=== PATIENT | female | born 1970 | race African-American/Black ===

== ENCOUNTER 2025-02-25 17:35 | Emergency (ER) | payer BC ==
[~2025-02-25] VITALS: Ht 165.1 cm; Wt 68.0 kg
[2025-02-25] MEDS ORDERED: IOHEXOL 350 100 ML INFUS..BTL ONE (18:24)
[2025-02-25] MEDS ORDERED: SWABABLE VALVE TRANSFER SET EA MC ONE (18:24)
[2025-02-25] MEDS ORDERED: IV NORMAL SALINE 250 ML IV ONE (18:24)
[2025-02-25 18:25] LABS: BASOPHILS % (AUTO) 0.4 % (0.0-2.0); EOSINOPHILS % (AUTO) 0.6 % (0.0-7.0); HEMOGLOBIN 13.2 g/dL (10.9-14.3); LYMPHOCYTES # (AUTO) 1.6 K/uL (0.8-4.8); LYMPHOCYTES % (AUTO) 21.2 % (20.5-51.5); MEAN CORPUSCULAR HEMOGLOBIN 30.6 uug (24.7-32.8); MEAN CORPUSCULAR HGB CONC 34 g/dL (32.3-35.6); MEAN CORPUSCULAR VOLUME 90.5 fL (75.5-95.3); MONOCYTES # (AUTO) 0.8 K/uL (0.1-1.30); MONOCYTES % (AUTO) 9.8 % (0.0-11.0); NEUTROPHILS # (AUTO) 5.2 K/uL (1.8-8.9); PLATELET COUNT (AUTO) 251 K/uL (179-408); RED BLOOD CELL COUNT(AUTO) 4.31 MIL/uL (3.63-4.92); RED CELL DISTRIBUTION WIDTH 12.9 % (12.3-17.7); WHITE BLOOD COUNT (AUTO) 7.7 K/uL (3.8-11.8)
[2025-02-25 18:26] LABS: DIFFERENTIAL COMMENT 1
[2025-02-25 18:30] LABS: CALCIUM 9.7 mg/dL (8.5-10.1); CARBON DIOXIDE 29 mmol/L (21-32); CHLORIDE 105 mmol/L (98-107); CREATININE 0.8 mg/dL (0.6-1.3); GLUCOSE 116 mg/dL (74-106); POTASSIUM 3.9 mmol/L (3.5-5.1); SODIUM SERUM 144 mmol/L (136-145); UREA NITROGEN, BLOOD 16 mg/dL (7-18)
[2025-02-25 18:36] LABS: ALANINE AMINOTRANSFERASE 29 U/L (14-59); ALBUMIN 3.9 g/dL (3.4-5.0); ALKALINE PHOSPHATASE 109 U/L (50-136); ASPARTATE AMINOTRANSFERASE 21 U/L (15-37); BILIRUBIN,DIRECT 0.1 mg/dL (0.0-0.2); BILIRUBIN,TOTAL 0.4 mg/dL (0.2-1.0); TOTAL PROTEIN, SERUM 7.3 g/dL (6.4-8.2)
[2025-02-25] MEDS ORDERED: CLOPIDOGREL 75 MG TABLET ONE (19:27)
[2025-02-25] MEDS ORDERED: ASPIRIN 325 MG TABLET ONE (19:27)
[2025-02-25] MEDS: ASPIRIN 325 MG TABLET PO ONE (19:29)
[2025-02-25] MEDS: CLOPIDOGREL 75 MG TABLET PO ONE (19:29)
[2025-02-25] MEDS ORDERED: hydrALAZINE HCL 20 MG/1 ML VIAL IV PRN (19:30)
[2025-02-25] MEDS ORDERED: LORAZEPAM 1 MG TABLET ONE (20:54)
[2025-02-25] MEDS: HYDROCODONE/APAP 5-325MG TABLET PO PRN (20:55)
[2025-02-25] MEDS: LORAZEPAM 0.5 MG TABLET PO PRN (20:55)
[2025-02-25] MEDS ORDERED: HYDROCODONE/APAP 5-325MG TABLET ONE (20:55)
[2025-02-25] MEDS ORDERED: SIMVASTATIN 20 MG TABLET PO SCH (21:00)
[2025-02-25 21:41] VITALS: BP 123/73; O2SAT 99
[2025-02-26] MEDS ORDERED: PANTOPRAZOLE SODIUM 40 MG TABLET.DR PO SCH (07:00)
[2025-02-26] MEDS ORDERED: CLOPIDOGREL 75 MG TABLET PO SCH (09:00)
[2025-02-26] MEDS ORDERED: ASPIRIN EC 81 MG TABLET.DR PO SCH (09:00)
[2025-02-26] MEDS ORDERED: ENOXAPARIN SODIUM 40 MG/0.4 ML DISP.SYRIN SQ SCH (09:00)
== END 2025-02-25 20:16 | disposition admitted as inpatient to this hospital (09) ==
LOC: ER 17:42 → UNDOADMIN 20:50 → TELE3 20:50 → UNDODISIN 21:38
DX: I63.9 Cerebral infarction, unspecified (principal); Z98.890 Other specified postprocedural states
CPT/HCPCS: 70450; 70496; 71045; 84443; 84484; 85025; 85730; 86850; 86900; 86901; A4606; A4663; G0378; Q9967